=== PATIENT | female | born 1995 | race African-American/Black ===

== ENCOUNTER 2020-09-30 11:52 | Day surgery (SDC) | payer MEDICAID, OTHER ==
--- NOTE | 2020-09-30 12:17 | PDOC.FPROB ---
FMR OB H&P: HPI - History of Present Illness Chief Complaint: elevated BP, RUQ abd pain, LE edema, scotoma Indentification: 25F @ 37.3wga by 13.1 wk sono History of Present Illness: Patient is a 25F @ 37.3wga by 13.1wk sono that [place] [facility] [place] elevated blood pressures. She was at clinic for a growth/mBPP for R femur hypoplasia and elevated weight gain during . She had repeated blood pressures 140-148/85-82. S he also endorsed RUQ abd pain, LE edema, and scotoma and was sent over for further evaluation. She denies VB, VD, LOF, CTX. Endorses FM. Denies headache. [facility] H&P: Current - Care : 1 Para: 0 Gestational age: 37.3wga Due date: 10/18/2020 Dating Criteria: 13.1wk sono Total weight gain: 50+ lbs - OB Labs Blood type: O RH: positive Antibody Screen: negative HIV: negative RPR: negative HepBsAg: negative Rubella: non-immune Quad screen: negative Urine drug screen: positive (marijuana) Gonorrhea: negative Chlamydia: negative Pap Smear: HPV+ (not 16/18) 3 hour GTT: 2hr gtt 83/102/94 GBS: negative (collected at [facility]) Additional labs: HSV1+ via serum, no known genital outbreaks - Additional Ultrasound Additional: 28.1wga sono: cephalic, anterior, 3VC, AMIE 13.8cm, EFW 1084g, Hadlock 18%. 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 3VC. AMIE 9.5cm. Isolated right femoral hypoplasia. FMR OB H&P: History - Past Medical History PMH: GERD - Surgical History Sx History: tonsillectomy - Social History Social History: Lives at [facility] - Family History Family History: Brother-epilepsy FMR OB H&P: Medications - Current Home Medications: Medication Instructions Recorded Confirmed Type Mv-Mn/Iron/FA/Herbal/Digestive 1 tablet PO DAILY 09/30/20 09/30/20 History [ One Tablet] Pantoprazole Sodium [Protonix] 20 mg PO DAILY 09/30/20 09/30/20 History Allergies/Adverse Reactions: Allergies Allergy/AdvReac Type Severity Reaction Status Date / Time No Known Allergies Allergy Unverified 09/30/20 12:36 FMR OB H&P: ROS - Review of Systems General: denies: fever/chills, weight/appetite/sleep changes Eyes: reports: vision changes, scotomas. denies: eye pain ENT: denies: nasal congestion, rhinorrhea, sore throat, pain with swallowing Cardiovascular: reports: edema. denies: chest pain, palpitation Respiratory: denies: cough, congestion, shortness of breath Gastrointestinal: reports: abdominal pain. denies: nausea, vomiting, diarrhea, constipation Genitourinary (Female): denies: incontinence, dysuria, hematuria, polyuria, hesitancy, vaginal discharge, vaginal pain, vaginal bleeding, contractions, vaginal pressure Musculoskeletal: denies: pain, stiffness Neurologic: denies: numbness, syncope, seizures, headache Integumentary: denies: itching, rash Psychological: denies: depression, anxiety FMR OB H&P: Vital Signs - Maternal Vital signs: 128/78 - Heart Tones Baseline: 140 Variability: moderate Acceleration: present Category: category 1 FMR OB H&P: Physical Exam - Physical Exam General: NAD, awake, alert and oriented HEENT: normocephalic and atraumatic, MMM, conjunctiva clear, no scleral icterus, grossly normal vision, grossly normal hearing, good dention Neck: supple, no LAD Chest: non-tender to palpation Heart: RRR, normal S1/S2, no murmurs/rubs/gallops, pulses present Deviation from normal: 1+ edema BLE, non-tender General: CTAB, no respiratory distress, no rales/rhonchi, no wheezing Abdomen: soft, gravid, non-tender Musculoskeletal: normal gait and station, pulses present Neurological: sensation to pain,touch and proprioception grossly normal, DTR +2, no clonus, no focal deficit Skin: no rash, good tugor, capillary refill <2 seconds Lymphatic: no unusual bruising or bleeding, no LAD Psychiatric: intact recent and remote memory, good judgement and insight, normal mood and affect - Pelvic Exam SVE: cl/th/high FMR OB H&P: A/P Disposition: Patient is a 25F @ 37.3 by 13.1wk patrica that presents from clinic for: #Elevated BP -patient had elevated BP in clinic, 140s/80s -endorsed RUQ pain with movement, BLE edema, scotoma, denies ESTRADA -recheck pressure here 128/79, will continue to monitor -will get pre-e labs: urine prot:creat, CMP, CBC #sIUP -was supposed to get growth and mBPP/NST while in clinic today for increased maternal weight gain and R femur hypoplasia, will get growth and BPP/NST while here -GBS collected on 09/24, negative -Opos, antibody neg, GC/C neg, HIV neg, RPR neg, Hep B neg, Hep C neg, sickle cell neg, quad screen neg, carrier screen neg #Rubella nonimmune -will need MMR pp #Hx of HSV-1 -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 UPDATE: Pre-eclampsia workup negative. With elevated BP at [facility] today as well as some pressures in the 130s here in triage, pt has gestational HTN. Scheduled for mIOL on 10/10/20 @ 1800, COVID test on 10/07 @ 0845. Discussed induction schedule with Dr. eBckwith as well. Will DC to home. Advised to check BP daily and given severe BP precautions. Given paper rx for BP cuff. Has appt for PNC tomorrow AM and instructed to keep appt. B.Rehg, DO, PGY-1 Signature: patient seen and examined by resident and myself. i agree with the diagnosis and care plan - thierno bunn
[2020-09-30 12:44] VITALS: BP 128/79; TEMP 97.8; BMI 36.6
[2020-09-30] MEDS ORDERED: hydrALAZINE 20 MG/ML VIAL SLOW IVP PRN (13:09)
[2020-09-30 14:37] LABS: Creatinine, Urine 119.47 mg/dL (47-110)
[2020-09-30 15:04] LABS: #Eosinphils 0.1 thou/uL (0.0-0.7); #Lymphocytes 2.1 thou/uL (1.20-3.40); #Monocytes 0.9 thou/uL (0.11-0.59); #Neutrophils 8.8 thou/uL (1.40-6.50); %Basophils 0.3 % (0.0-1.0); %Eosinophils 0.6 % (0.0-10.0); %Lymphocytes 17.4 % (21.0-51.0); %Monocytes 7.3 % (0.0-10.0); %Neutrophils 74.3 % (42.0-75.0); Hemoglobin 12.8 g/dL (12.0-16.0); Mean Corpuscular HGB CONC 33.6 g/dL (32.0-36.0); Mean Corpuscular Hemoglobin 33.3 pg (27.0-31.0); Mean Corpuscular Volume 99.2 fL (78.0-98.0); Mean Platelet Volume 9.3 fL (7.4-10.4); Platelet Count 202 thou/uL (130-400); RBC Distribution Width 11.3 % (11.5-14.5); Red Blood Cell (RBC) Count 3.83 mill/uL (4.20-5.40); White Blood Cell (WBC) Count 11.8 thou/uL (4.8-10.8)
[2020-09-30 15:24] LABS: ALT (SGPT) 12 U/L (8-55); AST (SGOT) 18 U/L (5-34); Albumin 3.3 g/dL (3.5-5.0); Alkaline Phosphatase 167 U/L (40-110); Anion Gap 13 mmol/L (10-20); BUN (Urea Nitrogen) 15 mg/dL (7.0-18.7); Bilirubin, Total 0.3 mg/dL (0.2-1.2); Calc. Creatinine Clearance 229 mL/min (70-130); Calcium 9.3 mg/dL (7.8-10.44); Carbon Dioxide 20 mmol/L (22-29); Chloride 105 mmol/L (98-107); Globulin 3.3 g/dL (2.4-3.5); Glucose 89 mg/dL (70-105); Potassium 3.9 mmol/L (3.5-5.1); Protein, Total 6.6 g/dL (6.0-8.3); Sodium 134 mmol/L (136-145)
--- NOTE | 2020-09-30 18:18 | ULT ---
OB ULTRASOUND WITH BIOPHYSICAL PROFILE: 09/30/20 INDICATIONS: Assess growth and wellbeing. FINDINGS: There is a single viable intrauterine . Gestational age by ultrasound is 37 weeks, 3 days. BIOMETRY: BPD: 37 week, 2 day HC: 37 week, 5 day AC: 38 week, 0 day FL: 36 week, 3 day EFW: 3234 grams, 39 week, 6 day. Placenta: Anterior. Position: Vertex. Amniotic fluid: Adequate. AMIE recorded at 15.8 cm. heart rate: 130 beats per minute. BIOPHYSICAL PROFILE: tone: Score 2 breathing: Score 2 movement: Score 2 Amniotic fluid: Score 2 Total Score: 8 IMPRESSION: 37 week, 3 day gestation by ultrasound. No abnormality identified. Anatomic survey was not performed. POS: AGW
[2020-10-01] MEDS ORDERED: FLU VACC QS2020-21(6MOS UP)/PF 60 MCG/0.5 ML SYRINGE IM ONE (09:00)
== END 2020-09-30 16:23 | disposition home or self-care (01) ==
LOC: L&D/OP 11:52
PROVIDERS: ATTEND Obstetrics & Gynecology
DX: O99.891 Other specified diseases and conditions complicating pregnancy (principal); R03.0 Elevated blood-pressure reading, without diagnosis of hypertension; R10.11 Right upper quadrant pain; O12.03 Gestational edema, third trimester; H53.459 Other localized visual field defect, unspecified eye; O99.613 Diseases of the digestive system complicating pregnancy, third trimester; K21.9 Gastro-esophageal reflux disease without esophagitis; O98.313 Other infections with a predominantly sexual mode of transmission complicating pregnancy, third trimester; A63.0 Anogenital (venereal) warts; O35.8XX0 Maternal care for other (suspected) fetal abnormality and damage, not applicable or unspecified; Q74.2 Other congenital malformations of lower limb(s), including pelvic girdle; Z3A.37 37 weeks gestation of pregnancy; Z79.899 Other long term (current) drug therapy
CPT/HCPCS: 36415; 76815; 76819; 80053; 82570; 84156; 84550; 85025; 99283

== ENCOUNTER 2020-10-07 08:13 | Outpatient (CLI) | payer OTHER, MEDICAID ==
[2020-10-07 23:10] LABS: SARS-CoV-2 PCR by NAA Not Detected (NotDetected)
== END 2020-10-07 08:14 | disposition home or self-care (01) ==
LOC: LABBT 08:13
PROVIDERS: ATTEND Family Medicine
DX: Z20.822 Contact with and (suspected) exposure to COVID-19 (principal)
CPT/HCPCS: 87635; U0003; U0005